=== PATIENT | female | born 1965 | race Caucasian/White ===

== ENCOUNTER 2023-12-25 17:59 | Emergency (ER) | payer SELFPAY ==
[~2023-12-25] VITALS: Ht 165.1 cm; Wt 73.5 kg
[2023-12-25 20:50] LABS: BASO # 0.1 10^3/uL (0.0-0.2); BASO % 0.6 % (0.0-1.0); EOS # 0.2 10^3/uL (0.0-0.5); EOS % 1.8 % (0.0-3.0); HEMATOCRIT 44.5 % (36.0-47.0); HEMOGLOBIN 14.6 g/dl (12.0-15.5); LYMPH # 1.8 10^3/uL (1.5-5.0); LYMPH % 20.4 % (24.0-44.0); MEAN CORPUSCULAR HEMOGLOBIN 29.4 pg (27.0-33.0); MEAN CORPUSCULAR HGB CONC 32.8 g/dl (32.0-36.5); MEAN CORPUSCULAR VOLUME 89.5 fl (80.0-96.0); MONO # 0.4 10^3/uL (0.0-0.8); MONO % 4.1 % (2.0-8.0); NEUTROPHILS # 6.2 10^3/uL (1.5-8.5); NEUTROPHILS % 72.6 % (36.0-66.0); PLATELET COUNT, AUTOMATED 292 10^3/uL (150-450); RED BLOOD COUNT 4.97 10^6/uL (4.00-5.40); WHITE BLOOD COUNT 8.6 10^3/uL (4.0-10.0)
[2023-12-25 21:17] LABS: LIPASE 35 U/L (12-53)
[2023-12-25 21:19] LABS: ALBUMIN 4.2 G/DL (3.2-5.2); ALKALINE PHOSPHATASE 95 U/L (46-116); ALT/SGPT 21 U/L (7.0-40); AST/SGOT 15 U/L (<34); BILIRUBIN,DIRECT 0.1 MG/DL (<0.4); BILIRUBIN,TOTAL 0.5 MG/DL (0.3-1.2); BLOOD UREA NITROGEN 14 MG/DL (9-23); CALCIUM LEVEL 9.7 MG/DL (8.5-10.1); CARBON DIOXIDE LEVEL 28 MMOL/L (20-31); CHLORIDE LEVEL 108 MMOL/L (98-107); CREATININE FOR GFR 0.89 MG/DL (0.55-1.30); GLOMERULAR FILTRATION RATE > 60.0 (>51); GLUCOSE, FASTING 104 MG/DL (60-100); SODIUM LEVEL 143 MMOL/L (136-145); TOTAL PROTEIN 7.4 G/DL (5.7-8.2)
[2023-12-25] MEDS ORDERED: ISOVUE-370 76% 100ML VIAL As Ordered ONE (23:09)
[2023-12-25] MEDS: KETOROLAC 30 MG/ML 1ML VIAL IV ONE (23:11)
[2023-12-25] MEDS: methocarbamoL 500 MG TAB PO ONE (23:11)
[2023-12-26] MEDS ORDERED: NAPR-837 PO (00:14)
[2023-12-26] MEDS ORDERED: METH-1164 PO (00:14)
[2023-12-26] MEDS ORDERED: LIDO5DIS41 TD (00:14)
[2023-12-26] MEDS: LIDOCAINE 5% (LIDODERM) PATCH TD ONE (00:24)
[2023-12-26 00:29] VITALS: BP 189/94; TEMP 97.9; O2SAT 98
== END 2023-12-26 00:31 | disposition home or self-care (01) ==
LOC: M ED 17:59
DX: R10.9 Unspecified abdominal pain (principal); Z88.1 Allergy status to other antibiotic agents; Z79.1 Long term (current) use of non-steroidal anti-inflammatories (NSAID); Z79.899 Other long term (current) drug therapy
CPT/HCPCS: 74177; 80048; 80076; 81001; 83690; 85025; 87086; 96374; 99284; J1885; Q9967